=== PATIENT | male | born 1985 | race Caucasian/White ===

== ENCOUNTER 2019-01-29 10:23 | Emergency (ER) | payer OTHER ==
--- NOTE | 2019-01-29 10:57 | ED ---
Seizure - HPI Summary HPI Summary: 33 year old male presents with a potential seizure last night. He states has a history of sleepwalking and talking. states that last night he tapped her and she woke up and noticed that his whole body was shaking. states was not able to wake him up for 30 secs. When he woke uphe was completely normal. Had a normal mental status and was able to answer questions and was not drowsy at all. states that watched until he eventually fell back asleep. woke him back up and he was still normal. He states this has never happened before. Did not hit his head. Did not bite his tongue. No family history of seizures. No history of alcohol abuse. Does have a history of syncope and tension headaches. Has had a full workup in the past for the syncope and they cannot find a reason. - History Of Current Complaint Chief Complaint: EDSeizure Time Seen by Provider: 01/29/19 10:41 - Allergies/Home Medications Allergies/Adverse Reactions: Allergies Allergy/AdvReac Type Severity Reaction Status Date / Time No Known Allergies Allergy Verified 01/29/19 11:03 PMH/Surg Hx/FS Hx/Imm Hx Endocrine/Hematology History: Denies: Hx Anticoagulant Therapy Respiratory History: Denies: Hx Asthma Neurological History: Reports: Hx Headaches, Other Neuro Impairments/Disorders - syncope Infectious Disease History: No Infectious Disease History: Denies: Traveled Outside the [place] in Last 30 Days - Family History Known Family History: Negative: Seizure Disorder - Social History Alcohol Use: Occasionally Substance Use Type: Reports: None Review of Systems Negative: Fever Negative: Chest Pain Negative: Shortness Of Breath Neurological: Other - potential seizure All Other Systems Reviewed And Are Negative: Yes Physical Exam Triage Information Reviewed: Yes Vital Signs On Initial Exam: Initial Vitals Temp Pulse Resp BP Pulse Ox 98.5 F 68 16 135/94 100 01/29/19 10:25 01/29/19 10:25 01/29/19 10:25 01/29/19 10:25 01/29/19 10:25 Vital Signs Reviewed: Yes Appearance: Positive: Well-Appearing Skin: Positive: Warm, Dry Head/Face: Positive: Normal Head/Face Inspection Eyes: Positive: Normal, EOMI, SIMONE, Conjunctiva Clear ENT: Positive: Normal ENT inspection, Pharynx normal Respiratory/Lung Sounds: Positive: Clear to Auscultation, Breath Sounds Present Cardiovascular: Positive: Normal, RRR Musculoskeletal: Positive: Normal Neurological: Positive: Sensory/Motor Intact, Alert, Oriented to Person Place, Time, CN Intact II-III Psychiatric: Positive: Normal - Sarah Coma Scale Best Eye Response: 4 - Spontaneous Best Motor Response: 6 - Obeys Commands Best Verbal Response: 5 - Oriented Coma Scale Total: 15 Diagnostics - Vital Signs Vital Signs Temp Pulse Resp BP Pulse Ox 01/29/19 10:25 98.5 F 68 16 135/94 100 - Laboratory Result Diagrams: 01/29/19 11:18 01/29/19 11:18 Lab Statement: Any lab studies that have been ordered have been reviewed, and results considered in the medical decision making process. - CT brain CT Interpretation Completed By: Radiologist Summary of CT Findings: IMPRESSION: NO ACUTE CT PATHOLOGY OF THE VISUALIZED ABDOMEN OR PELVIS. - EKG No standard instances Cardiac Rate: NL EKG Rhythm: Sinus Rhythm Summary of EKG Findings: sinus rhythm Course/Dx - Course Course Of Treatment: 33 year old male presents with a potential seizure last night. He states has a history of sleepwalking and talking. states that last night he tapped her and she woke up and noticed that his whole body was shaking. states was not able to wake him up for 30 secs. When he woke uphe was completely normal. Had a normal mental status and was able to answer questions and was not drowsy at all. states that watched until he eventually fell back asleep. woke him back up and he was still normal. He states this has never happened before. Did not hit his head. Did not bite his tongue. No family history of seizures. No history of alcohol abuse. Does have a history of syncope and tension headaches. Has had a full workup in the past for the syncope and they cannot find a reason. On exam has normal neuro exam currently. wbc normal. lab work without significant abnormality. CT shows no acute findings. spoke with dr cho who states could be front lobe seizure so get EEG and MRI w and w/o. After EEG performed dr cho patient does have a seizures. Request patient be placed on zonisaimide. We'll have follow-up with neurology. Patient understands agrees with plan. - Diagnoses Differential Diagnosis/HQI/PQRI: Positive: Intracranial Bleed, Metabolic Disorder, New Onset Seizure Provider Diagnoses: Seizure Discharge - Sign-Out/Discharge Documenting (check all that apply): Patient Departure Patient Received Moderate/Deep Sedation with Procedure: No - Discharge Plan Condition: Good Disposition: HOME Prescriptions: Zonisamide(NF) [Zonegran(NF)] 200 mg PO DAILY #30 cap Patient Education Materials: Epilepsy (ED) Referrals: Nata Rodriguez DO [Primary Care Provider] - Dmitri Cho MD [Medical Doctor] - Additional Instructions: take medication 1 tablet for 3 days, then 2 tablets thereafter follow up with neurology Return to ED if develop any new or worsening symptoms - Billing Disposition and Condition Condition: GOOD Disposition: Home
[2019-01-29 11:29] LABS: ABS Eosinophils 0.1 10^3/ul (0-0.6); ABS Lymphocytes 1.5 10^3/ul (1.0-4.8); ABS Monocytes 0.4 10^3/ul (0-0.8); ABS Neutrophils 3.6 10^3/ul (1.5-7.7); Eosinophil % 1.8 %; Hematocrit 46 % (42-52); Hemoglobin 15.9 g/dL (14.0-18.0); Lymphocyte % 27.2 %; Mean Corpuscular HGB Conc 35 g/dL (31-36); Mean Corpuscular Hemoglobin 29 pg (27-31); Mean Corpuscular Volume 84 fL (80-94); Mean Platelet Volume 6.9 fL (7.4-10.4); Platelet Count 208 10^3/uL (150-450); Red Blood Count 5.47 10^6 /uL (4.18-5.48); Red Cell Distribution Width 13 % (10-15); White Blood Count 5.6 10^3/uL (3.5-10.8)
[2019-01-29 11:39] LABS: INR 1.02 (0.82-1.09)
[2019-01-29 11:50] LABS: Albumin 4.1 g/dL (3.2-5.2); Albumin/Globulin Ratio 1.4 (1-3); BUN/Creatinine Ratio 12.7 (8-20); Calcium 9.2 mg/dL (8.6-10.3); EGFR African American 135.9 (>60); EGFR Non-African American 112.3 (>60); Potassium 4.2 mmol/L (3.5-5.0); Total Bilirubin 0.5 mg/dL (0.2-1.0); Total Protein 7.1 g/dL (6.4-8.9)
[2019-01-29 12:08] LABS: Urine Appearance Clear; Urine Bilirubin Negative (Negative); Urine Blood Negative (Negative); Urine Color Straw; Urine Glucose Negative (Negative); Urine Ketones Negative (Negative); Urine Nitrite Negative (Negative); Urine Protein Negative (Negative); Urine Urobilinogen Negative (Negative)
[2019-01-29] MEDS ORDERED: Gadoteridol* (CONTRAST) 279.3 MG/ML 10 ML IV ONE (14:25)
--- NOTE | 2019-01-29 15:58 | EEG ---
ELECTROENCEPHALOGRAPHY: DATE OF SERVICE: 01/29/19 DATE READ: 01/29/19 ORDERED BY: FREDY Melgar INDICATION: Mr. Cortés is a 33-year-old man with nocturnal episodes of seizure like activity. This EEG was requested to evaluate for epileptiform abnormalities or electrographic seizures. MEDICATIONS: None. CLINICAL STATE: Awake and sleep. REPORT: The most prominent feature of this recording were frequent, intermittent paroxysms, of independent, right more than left frontotemporal slowing lasting 1-4 seconds. The slowing accentuated during drowsiness and sleep. Otherwise, the waking background showed appropriate organization with clearly defined anterior- posterior voltage and frequency gradients. There was a well-defined posterior dominant rhythm of 10 Hz, which was symmetrical and showed normal reactivity. Anteriorly, there was an expected pattern of lower voltage, irregular, mixed faster frequencies. Hyperventilation and photic stimulation were not performed. Single electrode EKG showed normal sinus rhythm with a rate of 70 beats per minute. Throughout the recording, there were no electrographic seizures or epileptiform discharges. Attenuation of the occipital rhythm accompanied drowsiness. Sleep spindles and vertex waves were seen during stage 2 sleep. CLINICAL IMPRESSION: This is an abnormal awake and asleep EEG due to the presence of frequent intermittent paroxysms of independent, right more than left frontotemporal slowing. 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 There were no epileptiform discharges. Given the overall history, these findings can be seen in patients with complex partial seizures or frontal nocturnal seizures. [id number]/[facility] #: [id number] [facility]
[2019-01-29 16:42] VITALS: BP 140/93
--- NOTE | 2019-01-29 19:28 | CONS ---
NEUROLOGY CONSULTATION NOTE: DATE OF CONSULT: 01/29/19 CONSULTING PROVIDER: FREDY Melgar. REASON FOR CONSULT: Seizure-like activity. CHIEF COMPLAINT: Seizure-like activity. HISTORY OF PRESENT ILLNESS: Mr. Harrison Cortés is a pleasant 33-year-old healthy man who had an episode at 1:30 a.m. on 01/29/19 witnessed by his spouse that was described as seizure-like activity. The patient's spouse stated that she was awoken to the patient tapping on her shoulder. Suddenly, the patient started to have a rolling-like movement of the torso up and down that lasted 30 seconds. The patient was not responsive during this event. The patient had his eyes closed. She tried to wake him up during the incident, but he was not waking up. He did not have any convulsion nor did he have any incontinence. He did not bite his tongue. Immediately after this event, the patient was able to talk fine and act fine. He was answering questions appropriately. This is a first time incident. The patient has history of sleep parasomnia. The patient apparently walks in his sleep. He vocalizes a lot, at least 5 to 6 times a year where he yells and screams in the middle of the night. At one point, his spouse had to go to the neighbor's house and apologize for her 's parasomnias. The patient also has history of passing out spells. His last syncope was in 2013. He has had a total of 5 events over the last year since 2003. In 2003, he recalls talking to his boss when he suddenly fell down on the concrete surface. A few years later, he stood up quickly to go to the bathroom and his partner heard a loud thud. She went to assess him and he was on the floor. In 2013, he got up at nighttime to go use the bathroom and then fell. There was no witnessed seizure- like activity. However, he had extensive evaluation with an MRI of the brain x4 in the past. His brain MRI always turned out normal. He has never had an EEG. He has had multiple tilt table tests that were negative. His brother suffers from syncope with positive tilt table test. The patient recently moved from [place]. Seizure history, the patient denied any history of epilepsy. He has no family history of epilepsy. He denied any history of meningitis or encephalitis. He was born full-term via normal vaginal delivery. He has no history of developmental delay. PAST SURGICAL HISTORY: Fracture of the right eye with status post titanium plate after a syncope. MEDICATIONS: None. ALLERGIES: None. FAMILY HISTORY: No family history of stroke or seizures. His grandparents may have due to strokes. 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 He is going to [employer] in a program at [facility]. He has a girlfriend for 13 years. He is not . He has no children. He denied any tobacco or alcohol use. He denied any drug use. REVIEW OF SYSTEMS: A 14-point review of systems was obtained and otherwise negative, except for what was mentioned in the HPI. PHYSICAL EXAMINATION: Vitals: Temperature of 98.4, heart rate of 82, respiratory rate of 16, oxygen saturation 98%, blood pressure 140/93. Orthostatic vitals were not obtained. General: Well-nourished, well-developed man, in no acute distress. Head: Normocephalic, atraumatic. Eyes: Conjunctivae/corneas are clear. Neck is supple and symmetrical with no carotid bruits. No lymphadenopathy. Lungs are clear to auscultation bilaterally. Nonlabored breathing. Cardiovascular: Regular rate and rhythm with normal S1, S2. Extremities: Normal range of motion with no cyanosis. Skin: No skin lesions or laceration. Psych: Affect is broad and normal mood. Easy to establish rapport. Neurological Examination: Mental status: Awake, alert, oriented to person; place; time; and general circumstances. Speech and language including expression, naming, repetition, and comprehensions were assessed and found to be normal. Cranial Nerves: Normal to confrontation testing bilaterally. Pupils are mid range and reactive to light. Normal consensual response. Extraocular muscles are intact. There is no ptosis. No conjugate or asymmetrical nystagmus. Sensation is intact in the forehead, cheeks, and jaw regions bilaterally. There is no facial droop. He is able to hear throughout the history process. Symmetrical palatal elevation. Normal strength against shoulder resistance. Tongue is symmetrical and midline with no atrophy or fasciculation. The patient does have a lisp when talking. Motor Examination: No abnormal movements or pronator drift. Normal bulk and tone throughout with no fasciculation; 5/5 strength in the upper and lower extremities. Reflexes (right/left): Brachioradialis 2/2, biceps 2/2, triceps 3 /3, patella 3/3, ankle 2/2, plantar flexor/flexor. Sensation is intact to light touch throughout. Normal vibration and proprioception at the great toes. Coordination: Normal finger-to- nose and rapid alternating movement. Gait and Station: Narrow based and normal stance. The patient felt slight lightheadedness when he got up, but otherwise he feels back to normal. No ataxia. DIAGNOSTIC STUDIES/LAB DATA: Labs, imaging, and other diagnostic testing: WBC of 5.6, hemoglobin of 15.9, hematocrit of 46, platelet count of 208. INR of 1.02. Sodium of 138, potassium 4.2, anion gap is 4, BUN of 10, lactic acid is 0.8. AST is 16, ALT is 14. Urinalysis, no pyuria. CT of the head without contrast showed no acute intracranial abnormality. MRI of the brain showed no acute intracranial abnormality. The mesial temporal lobes are symmetric. There is a small right mastoid effusion. ASSESSMENT AND RECOMMENDATIONS: Mr. Harrison Cortés is a pleasant 33-year-old fairly healthy man with history of syncope, reported history of sleep parasomnia with loud vocalization, sleepwalking, and 1 episode of seizure-like activity. Please note that the EEG showed evidence of bifrontal independent right more than left frontotemporal slowing. MRI brain with and without contrast was negative. Based on the assessment, I suspect the patient may have frontal lobe nocturnal seizures. This is based on the episodes of vocalization throughout the years and now episode of abnormal movements in sleep. We have agreed to start the patient on antiseizure medication. We have decided to start zonisamide 100 mg nightly to increase to 200 mg nightly after 3 days. The side effects of zonisamide were discussed with the patient and his partner at bedside, which include, but not limited to, renal stones, weight loss, and drowsiness. Other differential diagnoses such as sleep paralysis, hypnopompic hallucinations , or pseudo nonepileptic events are considered. The patient has no risk factors for psychogenic events. I recommend close followup as an outpatient. The patient should follow up with [facility] neurology within 6 weeks. An outpatient ambulatory EEG study should be considered if the patient continues to have events. The patient and partner were interested in long-term video EEG monitoring to further characterize the event in the near future. I informed them that if treatment does not suppress these events, then this would be an option. We can eventually refer him to the epilepsy monitoring unit at [facility]. In the meantime, no driving restriction was implemented given that the episode occurred while he was asleep. However, I did emphasize that if he has any seizure-like activity occurring during the day, then the patient should not be driving, operating any other heavy machinery, or swimming unattended. The patient verbalized understanding. [id number]/[facility] #: [id number] [facility]
== END 2019-01-29 16:46 | disposition home or self-care (01) ==
LOC: ED 10:23
DX: R56.9 Unspecified convulsions (principal)
CPT/HCPCS: 36415; 70450; 70553; 80053; 81003; 83605; 83735; 85025; 85610; 93005; 95819; 99284; A9579